=== PATIENT | male | born 1950 | race Asian ===

== ENCOUNTER 2021-11-30 17:26 | Inpatient (IN) | payer MEDICARE, MEDICAID ==
[~2021-11-30] VITALS: Ht 167.6 cm; Wt 72.6 kg
[~2021-11-30 17:26] MED LIST: METF-415 MT; METO5AMP3 IV; SIMVASTATIN
[2021-11-30] MEDS ORDERED: ONDANSETRON HCL 4MG/2ML INJ IV STA (18:13)
[2021-11-30] MEDS ORDERED: FAMOTIDINE 20MG/2ML VIAL IV STA (18:13)
[2021-11-30] MEDS ORDERED: MORPHINE SULFATE 4 MG/ML CPJ (NOT FOR IM USE) IV STA (18:13)
[2021-11-30 18:26] LABS: BASOPHILS % 0.5 % (0.0-2.0); HEMOGLOBIN. 11.5 g/dL (14.0-18.0); LYMPHOCYTES % 34.8 % (20.0-50.0); MEAN CORPUSCULAR HEMOGLOBIN 29.9 pg (28.0-32.0); MEAN CORPUSCULAR VOLUME 88.5 fL (80.0-94.0); MEAN PLATELET VOLUME 8.1 fl (7.4-10.4); MONOCYTES % 6.4 % (2.0-8.0); NEUTROPHILS % 56.3 % (40.0-76.0); PLATELET 212 x1000/uL (130-400); RED BLOOD CELL COUNT 3.84 mill/uL (4.7-6.1); RED CELL DISTRIBUTION WIDTH 14.2 % (11.6-14.6)
[2021-11-30 18:34] LABS: CHLORIDE 105 mEq/L (98-107)
[2021-11-30] MEDS ORDERED: MORPHINE SULFATE 4 MG/ML CPJ (NOT FOR IM USE) IV ONE (21:00)
[2021-11-30] MEDS ORDERED: METRONIDAZOLE 500 MG PREMIX 100 ML IV ONE (22:45)
[2021-11-30] MEDS ORDERED: CEFTRIAXONE 1 G PREMIX 50 ML IV ONE (22:45)
[2021-11-30] MEDS ORDERED: MORPHINE SULFATE 4 MG/ML CPJ (NOT FOR IM USE) IV NR (23:15)
[2021-12-01 08:00] VITALS: BP 153/87
[2021-12-01 08:10] VITALS: BP 155/58
[2021-12-01] MEDS ORDERED: MORPHINE SULFATE 2 MG/ML CPJ (NOT FOR IM USE) IV PRN (08:45)
[2021-12-01] MEDS ORDERED: IPRATROPIUM/ALBUTEROL 0.5-3(2.5)MG/3ML NEB HHN PRN (08:45)
[2021-12-01] MEDS ORDERED: ACETAMINOPHEN 325MG TABLET PO PRN (08:45)
[2021-12-01] MEDS ORDERED: SODIUM CHLORIDE 0.45% 1,000 ML IV SCH (08:45)
[2021-12-01] MEDS ORDERED: ONDANSETRON HCL 4MG/2ML INJ IV PRN (08:45)
[2021-12-01] MEDS ORDERED: NALOXONE HCL 0.4MG/ML VIAL IV PRN (09:45)
[2021-12-01] MEDS ORDERED: GLIM4TAB36 PO (09:52)
[2021-12-01] MEDS ORDERED: QUIN10TA28 PO (09:52)
[2021-12-01] MEDS ORDERED: TAMS-11 PO (09:52)
[2021-12-01] MEDS ORDERED: CLOP75TA33 MT (09:52)
[2021-12-01] MEDS ORDERED: ASPI-1406 PO (09:54)
[2021-12-01] MEDS ORDERED: DEXTROSE 50% WATER 50ML SYRINGE IV PRN ×2 (10:45→11:45)
[2021-12-01] MEDS: PIPERACILLIN/TAZOBACTAM 3.375 G in DEXTROSE 5% WATER 50 ML IV SCH ×3 (10:53→22:21)
[2021-12-01] MEDS: ENOXAPARIN 40MG/0.4ML SYR SUBCUT SCH (10:53)
[2021-12-01 12:00] VITALS: BP 117/75
[2021-12-01] MEDS: BLOOD SUGAR DIAGNOSTIC STRIP TEST SCH ×3 (12:20→21:54)
[2021-12-01] MEDS ORDERED: BLOOD SUGAR DIAGNOSTIC STRIP TEST SCH (12:20)
[2021-12-01] MEDS ORDERED: INSULIN LISPRO 100 UNITS/ML SUBCUT SCH (12:50)
[2021-12-01] MEDS: INSULIN LISPRO 100 UNITS/ML SUBCUT SCH ×3 (12:50→21:00)
[2021-12-01 13:12] LABS: BASOPHILS % 0.6 % (0.0-2.0); EOSINOPHILS % 1.2 % (0.0-5.0); HEMATOCRIT. 34.1 % (42.0-52.0); HEMOGLOBIN. 11.5 g/dL (14.0-18.0); LYMPHOCYTES % 32.6 % (20.0-50.0); MEAN CORPUSCULAR HEMOGLOBIN 29.8 pg (28.0-32.0); MEAN CORPUSCULAR VOLUME 88.4 fL (80.0-94.0); MEAN PLATELET VOLUME 8.2 fl (7.4-10.4); MONOCYTES % 7.8 % (2.0-8.0); NEUTROPHILS % 57.8 % (40.0-76.0); PLATELET 225 x1000/uL (130-400); RED BLOOD CELL COUNT 3.86 mill/uL (4.7-6.1); RED CELL DISTRIBUTION WIDTH 13.9 % (11.6-14.6)
[2021-12-01 13:32] LABS: CHLORIDE 105 mEq/L (98-107)
[2021-12-01 15:46] LABS: FOLIC ACID (FOLATE) SERUM 11.9 ng/mL (>5.38)
[2021-12-01 16:00] VITALS: BP 183/84
[2021-12-01 17:44] LABS: CHLORIDE 103 mEq/L (98-107)
[2021-12-01 17:52] LABS: PHOSPHORUS 3.5 mg/dL (2.5-4.9)
[2021-12-01 20:00] VITALS: BP 190/77
[2021-12-01] MEDS ORDERED: CLONIDINE 0.1MG TABLET PO PRN (20:30)
[2021-12-01] MEDS: HYDRALAZINE HCL 25MG TABLET PO SCH (22:22)
[2021-12-01 23:36] VITALS: BP 118/55
[2021-12-02 04:00] VITALS: BP 153/71
[2021-12-02] MEDS: PIPERACILLIN/TAZOBACTAM 3.375 G in DEXTROSE 5% WATER 50 ML IV SCH ×3 (05:48→13:50)
[2021-12-02] MEDS: HYDRALAZINE HCL 25MG TABLET PO SCH ×2 (05:50→14:18)
[2021-12-02] MEDS: BLOOD SUGAR DIAGNOSTIC STRIP TEST SCH ×2 (06:06→12:20)
[2021-12-02] MEDS: INSULIN LISPRO 100 UNITS/ML SUBCUT SCH ×2 (07:50→14:18)
[2021-12-02 08:12] LABS: BASOPHILS % 0.7 % (0.0-2.0); EOSINOPHILS % 3.5 % (0.0-5.0); HEMATOCRIT. 33.8 % (42.0-52.0); HEMOGLOBIN. 11.6 g/dL (14.0-18.0); LYMPHOCYTES % 38.5 % (20.0-50.0); MEAN CORPUSCULAR HEMOGLOBIN 30.1 pg (28.0-32.0); MEAN CORPUSCULAR VOLUME 87.9 fL (80.0-94.0); MONOCYTES % 8.9 % (2.0-8.0); NEUTROPHILS % 48.4 % (40.0-76.0); PLATELET 225 x1000/uL (130-400); RED BLOOD CELL COUNT 3.85 mill/uL (4.7-6.1); RED CELL DISTRIBUTION WIDTH 14.2 % (11.6-14.6)
[2021-12-02 08:25] LABS: CHLORIDE 106 mEq/L (98-107)
[2021-12-02] MEDS: ENOXAPARIN 40MG/0.4ML SYR SUBCUT SCH (08:31)
== END 2021-12-02 15:40 | disposition home or self-care (01) | DRG 445 ==
LOC: ER 17:26 → MICUSO 23:35 → EDBEDREQ 23:43 → 6EST 12-01 06:32
PROVIDERS: ADMIT Internal Medicine; ATTEND Internal Medicine
DX: K80.00 Calculus of gallbladder with acute cholecystitis without obstruction (principal); N17.9 Acute kidney failure, unspecified; E11.9 Type 2 diabetes mellitus without complications; E78.5 Hyperlipidemia, unspecified; I10 Essential (primary) hypertension; E78.00 Pure hypercholesterolemia, unspecified; I25.10 Atherosclerotic heart disease of native coronary artery without angina pectoris; D64.9 Anemia, unspecified; B96.81 Helicobacter pylori [H. pylori] as the cause of diseases classified elsewhere; R10.13 Epigastric pain; Z79.899 Other long term (current) drug therapy; Z79.02 Long term (current) use of antithrombotics/antiplatelets; Z87.891 Personal history of nicotine dependence; Z79.84 Long term (current) use of oral hypoglycemic drugs
CPT/HCPCS: 36415; 71045; 74181; 76705; 80048; 80053; 80076; 82607; 82746; 82962; 83036; 83735; 83880; 84100; 84484; 85025; 93005; 99285; J0696; J1650; J2270; J2405; J2543; J3490; J7060